=== PATIENT | female | born 1945 | race Caucasian/White ===

== ENCOUNTER 2024-08-21 20:30 | Inpatient (IN) | payer MEDICARE, BC ==
[~2024-08-21] VITALS: Ht 162.6 cm; Wt 73.9 kg
[2024-08-21 21:33] LABS: BASOPHILS % (AUTO) 0.6 % (0.0-2.0); EOSINOPHILS # (AUTO) 0.1 K/uL (0.0-0.7); EOSINOPHILS % (AUTO) 1.4 % (0.0-7.0); HEMATOCRIT 35.8 % (31.2-41.9); HEMOGLOBIN 12.1 g/dL (10.9-14.3); LYMPHOCYTES # (AUTO) 1.2 K/uL (0.8-4.8); LYMPHOCYTES % (AUTO) 20.3 % (20.5-51.5); MEAN CORPUSCULAR HEMOGLOBIN 30.1 uug (24.7-32.8); MEAN CORPUSCULAR HGB CONC 34 g/dL (32.3-35.6); MEAN CORPUSCULAR VOLUME 89.6 fL (75.5-95.3); MONOCYTES # (AUTO) 0.6 K/uL (0.1-1.30); MONOCYTES % (AUTO) 9.7 % (0.0-11.0); NEUTROPHILS # (AUTO) 3.9 K/uL (1.8-8.9); PLATELET COUNT (AUTO) 186 K/uL (179-408); RED CELL DISTRIBUTION WIDTH 14.1 % (12.3-17.7); WHITE BLOOD COUNT (AUTO) 5.7 K/uL (3.8-11.8)
[2024-08-21 21:38] LABS: DIFFERENTIAL COMMENT 1
[2024-08-21 21:43] LABS: CALCIUM 9.3 mg/dL (8.5-10.1); CARBON DIOXIDE 30 mmol/L (21-32); CHLORIDE 102 mmol/L (98-107); CREATININE 0.6 mg/dL (0.6-1.3); GLUCOSE 103 mg/dL (74-106); POTASSIUM 3.9 mmol/L (3.5-5.1); SODIUM SERUM 139 mmol/L (136-145); UREA NITROGEN, BLOOD 11 mg/dL (7-18)
[2024-08-21 21:52] LABS: ALANINE AMINOTRANSFERASE 28 U/L (14-59); ALBUMIN 3.7 g/dL (3.4-5.0); ALKALINE PHOSPHATASE 94 U/L (50-136); ASPARTATE AMINOTRANSFERASE 22 U/L (15-37); BILIRUBIN,DIRECT 0.2 mg/dL (0.0-0.2); BILIRUBIN,TOTAL 0.5 mg/dL (0.2-1.0)
[2024-08-21 21:57] LABS: THYROID STIMULATING HORMONE 4.602 mIU/mL (0.358-3.740)
[2024-08-21] MEDS ORDERED: NITROGLYCERIN OINT 1 GM PACKET TP ONE (22:33)
[2024-08-21] MEDS: IV NORMAL SALINE 1000 ML BAG IV ONE (22:35)
[2024-08-21] MEDS: NITROGLYCERIN OINT 1 GM PACKET TP ONE (22:35)
[2024-08-21] MEDS ORDERED: LEVO25TA9 PO (22:37)
[2024-08-21] MEDS ORDERED: ROSU40TA PO (22:37)
[2024-08-21] MEDS: ASPIRIN 81 MG TAB.CHEW PO ONE (22:50)
[2024-08-21] MEDS ORDERED: ACETAMINOPHEN 325 MG TABLET PO PRN (23:00)
[2024-08-21] MEDS ORDERED: hydrALAZINE HCL 20 MG/1 ML VIAL IV PRN (23:00)
[2024-08-21] MEDS ORDERED: MORPHINE SULFATE 2 MG/1 ML DISP.SYRIN IVP PRN (23:00)
[2024-08-21] MEDS ORDERED: ONDANSETRON 4 MG/2 ML VIAL IV PRN (23:00)
[2024-08-22] VITALS (8 sets, daily range): BP systolic 100–162; BP diastolic 40–75; TEMP 97.6–98.9; O2SAT 93–99
[2024-08-22] MEDS: TRAZODONE 50 MG TABLET PO SCH (02:10)
[2024-08-22 07:47] LABS: BASOPHILS % (AUTO) 0.6 % (0.0-2.0); EOSINOPHILS # (AUTO) 0.1 K/uL (0.0-0.7); EOSINOPHILS % (AUTO) 1.1 % (0.0-7.0); HEMATOCRIT 31.9 % (31.2-41.9); HEMOGLOBIN 11.1 g/dL (10.9-14.3); LYMPHOCYTES # (AUTO) 1.3 K/uL (0.8-4.8); MEAN CORPUSCULAR HGB CONC 35 g/dL (32.3-35.6); MEAN CORPUSCULAR VOLUME 88.9 fL (75.5-95.3); MONOCYTES # (AUTO) 0.7 K/uL (0.1-1.30); MONOCYTES % (AUTO) 9.7 % (0.0-11.0); NEUTROPHILS # (AUTO) 5.1 K/uL (1.8-8.9); NEUTROPHILS % (AUTO) 70.6 % (38.5-71.5); PLATELET COUNT (AUTO) 188 K/uL (179-408); RED BLOOD CELL COUNT(AUTO) 3.59 MIL/uL (3.63-4.92); WHITE BLOOD COUNT (AUTO) 7.2 K/uL (3.8-11.8)
[2024-08-22 07:55] LABS: DIFFERENTIAL COMMENT 1
[2024-08-22 08:14] LABS: ALANINE AMINOTRANSFERASE 29 U/L (14-59); ALBUMIN 3.2 g/dL (3.4-5.0); ALKALINE PHOSPHATASE 79 U/L (50-136); ASPARTATE AMINOTRANSFERASE 19 U/L (15-37); BILIRUBIN,TOTAL 0.5 mg/dL (0.2-1.0); CALCIUM 8.9 mg/dL (8.5-10.1); CARBON DIOXIDE 27 mmol/L (21-32); CHLORIDE 107 mmol/L (98-107); CREATININE 0.5 mg/dL (0.6-1.3); GLUCOSE 108 mg/dL (74-106); PHOSPHOROUS 3.5 mg/dL (2.5-4.9); POTASSIUM 3.7 mmol/L (3.5-5.1); SODIUM SERUM 141 mmol/L (136-145); UREA NITROGEN, BLOOD 10 mg/dL (7-18)
[2024-08-22] MEDS: LEVOTHYROXINE SODIUM 25 MCG TABLET PO SCH (08:42)
[2024-08-22] MEDS: HEPARIN SODIUM,PORCINE 5,000 UNITS/ML VIAL SQ SCH (08:46)
[2024-08-22] MEDS ORDERED: Medication Not On Formulary EA (Rosuvastatin Calcium (Crestor) 1 TAB) PO SCH (09:00)
[2024-08-22] MEDS: ASPIRIN 81 MG TAB.CHEW PO SCH (10:20)
[2024-08-22] MEDS: IBUPROFEN 200 MG TABLET PO PRN (10:20)
[2024-08-22] MEDS ORDERED: LEVO75TA7 PO (12:34)
[2024-08-22] MEDS ORDERED: EZET10TA15 PO (12:34)
[2024-08-22] MEDS: METOPROLOL TARTRATE 50 MG TABLET PO ONE (13:42)
[2024-08-22] MEDS: ATORVASTATIN 40 MG TABLET PO SCH (21:00)
[2024-08-23] MEDS ORDERED: LEVOTHYROXINE SODIUM 75 MCG TABLET PO SCH (07:30)
[2024-08-23] MEDS ORDERED: EZETIMIBE 10 MG TABLET PO SCH (09:00)
== END 2024-08-22 22:15 | disposition home or self-care (01) | DRG 305 ==
LOC: ER 20:30 → TELE3 22:50
PROVIDERS: ADMIT Internal Medicine; ATTEND Internal Medicine
DX: I11.9 Hypertensive heart disease without heart failure (principal); E03.9 Hypothyroidism, unspecified; R79.89 Other specified abnormal findings of blood chemistry; R25.1 Tremor, unspecified; H50.9 Unspecified strabismus; E78.5 Hyperlipidemia, unspecified; Z88.8 Allergy status to other drugs, medicaments and biological substances; Z79.890 Hormone replacement therapy
CPT/HCPCS: 36415; 70450; 71045; 84100; 84443; 84481; 84484; 85025; 93307; A4663; A6209; G0378; J1644; J7040